=== PATIENT | female | born 1970 | race Caucasian/White ===

== ENCOUNTER 2019-12-16 14:55 | Outpatient (CLI) | payer BC, SELFPAY ==
--- NOTE | 2019-12-16 15:02 | MR_ITS ---
WS: [id number] MRI RIGHT SHOULDER NONCONTRAST TECHNIQUE: Sagittal T2, coronal T1, T2 and proton density imaging. Axial gradient PDE imaging. CLINICAL INFORMATION: RT ADHESIVE CAPSULITIS;ROTATOR CUFF SYNDROME RT COMPARISON: None. FINDINGS: Moderate degenerative arthritis AC joint. Mild downsloping acromion. Small amount of subacromial subd eltoid fluid. Edema at the AC joint. Signal abnormality in the rotator interval with thickening of th e axillary recess can be seen with adhesive capsulitis in appropriate clinical setting. Partial intrasubstance tear involving the distal supraspinatus at the insertion. Tendinopathy in the supraspinatus. No tendon retraction. Infraspinatus is intact. Normal teres minor. T2 signal abnormali ty involving the subscapularis tendon consistent with tendinopathy and partial intrasubstance tear. Normal biceps tendon in the bicipital groove. Tendinopathy along the intra-articular portion of the b iceps tendon which appears intact. Normal biceps labral anchor. Glenoid labrum appears grossly intact . Small amount of fluid along the subcoracoid recess. MR/MR shoulder RT wo con* [id number] IMPRESSION: 1. Moderate degenerative arthritis at the AC joints with edema and a small ludy unt of subacromial/subdeltoid fluid. 2. Small intrasubstance tear involving the distal supraspinatus at the inserti on. No tendon retraction. 3. Partial intrasubstance tear with tendinopathy involving the distal subscapu yolie tendon. No retraction. 4. Tendinopathy involving the intra-articular portion of the biceps tendon. Bi ceps labral anchor appears intact. 5. T2 signal abnormality in the rotator interval with thickening of the axilla ry recess can be seen with adhesive capsulitis in appropriate clinical setting.
== END 2019-12-16 14:56 | disposition home or self-care (01) ==
LOC: RADSHAW 15:00
PROVIDERS: Family Provider Electrodiagnostic Medicine; PCP Electrodiagnostic Medicine; Visit Provider Electrodiagnostic Medicine
DX: M75.01 Adhesive capsulitis of right shoulder (principal); M19.011 Primary osteoarthritis, right shoulder; M75.101 Unspecified rotator cuff tear or rupture of right shoulder, not specified as traumatic
CPT/HCPCS: 73221

== ENCOUNTER 2022-12-12 15:58 | Outpatient (CLI) | payer BC, SELFPAY ==
--- NOTE | 2022-12-12 16:19 | XR_ITS ---
WS: [id number] Left hand, 3 views, 12/12/2022 Clinical Data: left thumb pain Comparison: None. Findings: No fractures or dislocations are seen. The soft tissues are unremarkable. There is mild osteoarthriti c change of the second through fifth DIP joints. No periarticular demineralization is seen. 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
== END 2022-12-12 15:59 | disposition home or self-care (01) ==
PROVIDERS: PCP Family Medicine; Visit Provider Family Medicine
DX: Z00.00 Encounter for general adult medical examination without abnormal findings (principal); Z76.89 Persons encountering health services in other specified circumstances; M19.042 Primary osteoarthritis, left hand
CPT/HCPCS: 73130; 80053; 80061; 83036; 85025

== ENCOUNTER 2022-12-22 15:50 | Outpatient (CLI) | payer BC, SELFPAY ==
--- NOTE | 2022-12-22 15:53 | MM_ITS ---
WS: [id number] BILATERAL 3D TOMOSYNTHESIS DIGITAL SCREENING MAMMOGRAPHY WITH CAD CLINICAL INFORMATION: SCREEN HISTORY: Screening mammogram. No current complaints. COMPARISON: April 19, 2013 TECHNIQUE: Bilateral CC and MLO views. FINDINGS: Scattered fibroglandular densities bilaterally. No suspicious focal mass, asymmetry, calcifications, or architectural distortion. No evidence of malignancy. MM/[place] [id number] IMPRESSION: BI-RADS: 1-Negative FOLLOW UP: 1 Year Follow-up Recommend return to annual screening mammography.
== END 2022-12-22 15:51 | disposition home or self-care (01) ==
LOC: RAD 15:50
PROVIDERS: PCP Family Medicine; Visit Provider Family Medicine
DX: Z12.31 Encounter for screening mammogram for malignant neoplasm of breast (principal)
CPT/HCPCS: 77063; 77067

== ENCOUNTER → 2023-10-27 12:29 | Outpatient (BNVA) | payer BC, SELFPAY | PROVIDERS: PCP Family Medicine; Visit Provider Family Medicine | DX: R20.0 Anesthesia of skin (principal); R20.2 Paresthesia of skin | CPT/HCPCS: 80053; 82607; 82746; 84443; 85025 ==

== ENCOUNTER → 2024-03-12 11:43 | Outpatient (BNVA) | payer BC, SELFPAY | PROVIDERS: PCP Family Medicine; Visit Provider Student in an Organized Health Care Education/Training Program | DX: G56.01 Carpal tunnel syndrome, right upper limb; M18.12 Unilateral primary osteoarthritis of first carpometacarpal joint, left hand | CPT/HCPCS: 73110 ==

== ENCOUNTER 2024-04-24 06:38 | Day surgery (SDC) | payer BC, SELFPAY ==
[2024-04-24] VITALS (8 sets, daily range): BP systolic 114–163; BP diastolic 76–96; PULSE 73–87; RESP 14–20; TEMP 36.3–37.2; O2SAT 93–97; BMI 37.3
[2024-04-24] MEDS: acetaminophen 1,000 MG/100 ML PIGGYBACK 400 MG IV (06:40)
[2024-04-24] MEDS: sodium chloride 0.9% 1,000 ML 30 ML IV (07:04)
[2024-04-24] MEDS: scopolamine 1.5 Patch 1 PATCH TRANSDERMA (07:05)
--- NOTE | 2024-04-24 07:09 | P.ANESASSM_ITS ---
Pre-Anesthetic Assessment Height/Weight: Height 1.5 m Weight 83.915 kg O2 Del Method Room Air 04/24/24 07:02 Operation Date: 04/24/24 08:35 Proposed Procedures p Carpal Tunnel Release(Right) - Munir Thomas DO Familial anesthetic complications: None Was Beta Pablo taken within 24 hours: N/A Was Clonidine taken within 24 hours: N/A Last intake: Intake Last Liquid Date 04/23/24 Last Liquid Time 23:30 Last Solid Date 04/23/24 Last Solid Time 22:00 Social No alcohol and No tobacco Exam alert, oriented x 3, clear to auscultation bilaterally and regular rate & rhythm Airway Mallampati: Class II Dentition: full Pulmonary Asthma GI Gastroesophageal Reflux Disease Anesthetic Plan ASA status: 2 Anesthesia: MAC Risk of > 500 ml blood loss (7ml/kg in children): No Medications/Allergies Home Medications Medication Instructions Recorded Confirmed Last Taken Type omeprazole 40 mg capsule,delayed 40 mg PO DAILY 12/12/22 04/23/24 04/23/24 History release diclofenac sodium 1 % topical gel 2 g topical QID PRN arthritis #100 12/13/22 04/23/24 04/23/24 Rx (Voltaren Arthritis Pain) grams Allergies Allergy/AdvReac Type Severity Reaction Status Date / Time naproxen [From Naprosyn] Allergy anaphylaxis Verified 03/12/24 11:48 Current Medications Generic Name Dose Route Start Last Admin Trade Name Freq PRN Reason Stop Dose Admin Sodium Chloride 1,000 mls @ 30 mls/hr 04/24/24 06:45 04/24/24 07:04 Sodium Chloride 0.9% IV 04/25/24 06:44 30 mls/hr .Q24H DARLENE Administration PFSH Anesthesia Medical History GERD (gastroesophageal reflux disease) Herpes labialis Asthma Surgical History History of section History of tonsillectomy and adenoidectomy Family History Mother Diabetes Cancer colon - age 64 CAD (coronary artery disease) Grandmother , 56 Cancer Father Cancer Social History Smoking and tobacco/nicotine status: never used tobacco/nicotine Alcohol intake: current Alcohol intake frequency: 0-2 Drinks per Day Substance/Drug Use: never Lives independently: Yes Household members: children Marital status: Number of children: 1 Current occupational status: employed 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
--- NOTE | 2024-04-24 08:22 | P.HP_ITS ---
Same Day Surgery H&P Indication for Procedure/HPI DATE OF PROCEDURE: April 24, 2024 CHIEF COMPLAINT/INDICATIONFOR SURGICAL PROCEDURE: Right carpal tunnel syndrome PREOP DIAGNOSIS: Right carpal tunnel syndrome PLANNED PROCEDURE: Operation Date: 04/24/24 08:35 Proposed Procedures p Carpal Tunnel Release(Right) - Munir Thomas, Medications/Allergies* Home Medications Medication Instructions Recorded Confirmed Type omeprazole 40 mg capsule,delayed 40 mg PO DAILY 12/12/22 04/23/24 History release Allergies/Adverse Reactions Allergy/AdvReac Type Severity Reaction Status Date / Time naproxen [From Naprosyn] Allergy anaphylaxis Verified 03/12/24 11:48 Current Medications: Generic Name Dose Route Start Last Admin Trade Name Freq PRN Reason Stop Dose Admin Sodium Chloride 1,000 mls @ 30 mls/hr 04/24/24 06:45 04/24/24 07:04 Sodium Chloride 0.9% IV 04/25/24 06:44 30 mls/hr .Q24H DARLENE Administration Pertinent History/Comorbid Conditions* Medical History (Updated 12/29/23 @ 12:10 by Celine Regalado MD) GERD (gastroesophageal reflux disease) Herpes labialis Asthma Surgical History (Updated 12/12/22 @ 15:09 by Samira Borjas MD) History of section History of tonsillectomy and adenoidectomy Family History (Updated 12/12/22 @ 15:26 by Samira Borjas MD) Grandmother, 56 Diabetes Mother CAD (coronary artery disease) Mother Cancer Mother colon - age 64 Grandmother Father Social History Smoking and tobacco/nicotine status: never used tobacco/nicotine Alcohol intake: current Alcohol intake frequency: 0-2 Drinks per Day Substance/Drug Use: never Lives independently: Yes Household members: children Marital status: Number of children: 1 Current occupational status: employed 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 Negative Spurlings Negative tinels @ elbows Right and left. Normal ROM neg Guyons compression test Wrist: Positive median compression test Positive Tinel's on the right Positive Phalen's No thenar atrophy mild weakness bilaterally. No Intrinsic atrophy noted bilaterally. Tenderness to palpation over the left thumb CMC joint with positive CMC grind. Recommendations Surgery/Procedure today Other Plans: Plan to proceed OR today for right carpal tunnel release, patient understands and Zetts procedure risk benefits complication alternatives of surgery and maria teresau clayton shared decision make elects proceed with surgical intervention all questions answered. Coding Level of Care Code Acute Code for Chg Fwd
[2024-04-24] MEDS: ceFAZolin 2,000 MG in sodium chloride 0.9% (plus) 50 ML 100 MG IV (08:27)
[2024-04-24] MEDS: ROPivacaine 0.5% SDV 30 mL 25 MG INJECTION (08:47)
[2024-04-24] MEDS: lidocaine-epi 1% 20 mL INJ 5 ML INJECTION (08:47)
--- NOTE | 2024-04-24 09:07 | W.PM.BPON ---
Date of Procedure: [April 24, 2024] Surgeon: [Dr. Thomas DO] Print Developer Automatic(s): [Dipak Thomas PA-C] Procedure(s) performed: [Right carpal tunnel release] Findings of the procedure(s): [Right carpal tunnel syndrome] Estimated blood loss: [2 mL] Specimen(s) removed: [N/A] Post-operative diagnosis: [Right carpal tunnel syndrome]
--- NOTE | 2024-04-24 09:10 | PM.OP ---
Operative Report Date of procedure: April 24, 2024 Surgeon: Munir Thomas DO Patient Support Associate: Dipak Thomas PA-C: PA was necessary for assistance in this case with hand positioning to execute the procedure, retraction and protection of neurovascular structures as well as to assist with wound closure and dressing application. Procedure: Preoperative diagnosis: Right carpal tunnel syndrome post-op diagnosis: Same Procedure done: 1.?Right carpal tunnel?release Surgeon: Munir Thomas DO Anesthesia: MAC (Local) Estimated blood loss: 2 mL Tourniquet time 7 minutes IV fluids: See anesthesia?record Complications: None Findings: See operative?report narrative Condition: stable Disposition: same day Brief History: Patient is a pleasant 53 year-old female with?right carpal tunnel syndrome.? Patient has been worked up in the outpatient setting findings and physical examination consistent with this.? Patient nerve conduction studies consistent with carpal tunnel syndrome.? We detailed out patient's?risk benefits complication alternatives with surgical and nonsurgical treatment options. Through shared decision making, patient agrees to proceed with surgical intervention of the right carpal tunnel?release .? Patient understands and agrees with current plan.? All questions answered.? Patient elects to proceed with surgical intervention with carpal tunnel?release. Procedure: Patient seen and evaluated in the preoperative holding area.? Consent was?reviewed and signed with patient.? Correct extremity was marked.? Patient was seen evaluated by the anesthesia department once cleared for surgery was brought back to the operative suite.? Patient was kept on [facility] in supine position all bony prominences were well-padded patient properly secured to the bed.??Right upper extremity was then placed onto an armboard.? A nonsterile tourniquet was applied to the?RIght upper arm.? Patient underwent anesthesia per the anesthesia department.? Patient's?Right upper extremity was then prepped and draped in standard orthopedic fashion.? Final timeout performed.? Patient?received appropriate preoperative antibiotics. Under sterile aseptic technique patient?received local anesthesia over the preplanned carpal tunnel incision site. Esmarch was used to exsanguinate the?Right upper extremity and tourniquet was insufflated to 250 mmHg. A standard mini open?Right carpal tunnel incision was made.? Starting distally at Handley's cardinal line in line with the fourth?ray extending proximally distal to the wrist crease centered over the carpal tunnel.? Sharp scalpel incision was made through skin and subcutaneous tissue.? Self-retaining?retractor was placed and the palmar fascia was identified.? This was then split longitudinally and direct visualization of the transverse carpal ligament was then made.? I then utilizing scalpel feathered through the transverse carpal ligament until I entered the floor of the transverse carpal tunnel ligament into the carpal tunnel.? Next I switched to dissection scissors and completed my?release of the transverse carpal ligament distally with care to protect the?recurrent motor branch.? I completely?released into the palmar fat and until no entrapment was noted distally.? Care was made to protect the superficial palmar arch during my distal dissection.?? Next I utilized a nasal speculum placed on top of the transverse carpal ligament and utilize this to?retract the subcutaneous fat and tissue and under direct loupe magnification was able to identify the transverse carpal ligament.? Next I then placed a Cedar underneath the transverse carpal tunnel ligament to protect the contents of the carpal tunnel and subsequently utilizing dissection scissors under loupe magnification completely?released the transverse carpal ligament proximally into the median antebrachial fascia.? Care was made to protect the palmar cutaneous branch by keeping my scissors curved ulnarly.? Once completely?released, I then placed my Cedar and had appropriate decompression of the carpal tunnel proximally as well as distally.? I then inspected the contents of the carpal tunnel which showed an hourglass shape of the median nerve showing its compression.? No masses were noted.? Tendons appeared healthy.? Wound was then thoroughly irrigated.? Tourniquet deflated.? Hemostasis satisfactory with bipolar electrocautery.? I then closed the incision with interrupted nylon stitches.? Xeroform 4 x 4's and a bulky soft dressing was applied.? Patient was then awakened from anesthesia and taken to PACU in stable condition.? Patient tolerated procedure without complications. Disposition: Patient taken to PACU in stable condition?recovering well.? Dressing clean dry and intact.? Patient will?receive appropriate discharge instructions as well as pain medication postoperatively.? Patient to follow-up with me in the office in 2 weeks.? They understand they may be weightbearing as tolerated to the?right hand.? Patient should keep incision clean dry and intact.? Patient understands if any questions or concerns may contact the office.
--- NOTE | 2024-04-24 09:20 | P.PCN_ITS ---
PACU note Narrative: Patient is a 53-year-old female just underwent a right carpal tunnel release. Patient transferred to PACU in stable condition. Pain is well controlled. Dressing on hand is dry and in place. Patient's fingers are warm and well- perfused. Patient can wiggle fingers. normal cap refill under 2 seconds. Patient has normal elbow range of motion. Unable to assess sensation due to residual localized anesthetic. Exam: awake Disposition: discharged
--- NOTE | 2024-04-24 10:10 | ANE.PACU2 ---
Inpatient post-anesthesia follow up: Airway intact: Yes Vital signs: Temperature 97.6 F Pulse Rate 77 Respiratory Rate 18 Blood Pressure 134/91 Pulse Oximetry 97 Oxygen Delivery Me thod Room Air Oxygen Flow Rate 8 Fraction of Inspir ed Oxygen Hydration adequate: Yes Nausea and vomiting: No Pain level: 1 Mental status: Baseline
== END 2024-04-24 10:10 | disposition home or self-care (01) ==
PROVIDERS: PCP Family Medicine; Visit Provider Student in an Organized Health Care Education/Training Program
PROC: (CPT 64721; principal; 2024-04-24 08:25)
DX: G56.01 Carpal tunnel syndrome, right upper limb (principal); K21.9 Gastro-esophageal reflux disease without esophagitis
CPT/HCPCS: 64721; J0131; J0690; J2250; J2704; J2795; J3010; J7030

== ENCOUNTER 2024-07-24 08:23 | Day surgery (SDC) | payer BC, SELFPAY ==
[2024-07-24] VITALS (9 sets, daily range): BP systolic 122–146; BP diastolic 72–101; PULSE 69–83; RESP 14–18; TEMP 36.1–36.7; O2SAT 96–99; BMI 38.0
--- NOTE | 2024-07-24 08:41 | P.HP_ITS ---
Same Day Surgery H&P Indication for Procedure/HPI DATE OF PROCEDURE: July 24, 2024 CHIEF COMPLAINT/INDICATIONFOR SURGICAL PROCEDURE: Left carpal tunnel syndrome PREOP DIAGNOSIS: Left carpal tunnel syndrome PLANNED PROCEDURE: Operation Date: 07/24/24 10:05 Proposed Procedures p Carpal Tunnel Release(Left) - Munir Thomas DO Medications/Allergies* Home Medications Medication Instructions Recorded Confirmed Type black cohosh 40 mg tablet 40 mg PO ONCE 07/23/24 07/23/24 History Allergies/Adverse Reactions Allergy/AdvReac Type Severity Reaction Status Date / Time naproxen [From Naprosyn] Allergy anaphylaxis Verified 05/16/24 07:10 Current Medications: Generic Name Dose Route Start Last Admin Trade Name Freq PRN Reason Stop Dose Admin Ketorolac Tromethamine 30 mg 07/24/24 08:31 07/24/24 08:39 Ketorolac 30 Mg/Ml Inj IVP 07/24/24 08:32 Not Given ONCE ONE Pertinent History/Comorbid Conditions* Medical History (Updated 05/16/24 @ 07:35 by Munir Thomas DO) GERD (gastroesophageal reflux disease) Herpes labialis Asthma Surgical History (Updated 05/15/24 @ 10:36 by STAN Harvey) History of section History of tonsillectomy and adenoidectomy Family History (Updated 12/12/22 @ 15:26 by Samira Borjas MD) Grandmother, 56 Diabetes Mother CAD (coronary artery disease) Mother Cancer Mother colon - age 64 Grandmother Father Social History Smoking and tobacco/nicotine status: never used tobacco/nicotine Alcohol intake: current Alcohol intake frequency: 0-2 Drinks per Day Substance/Drug Use: never Lives independently: Yes Household members: children Marital status: Number of children: 1 Current occupational status: employed 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 Fingers are warm and well-perfused Normal range of motion in wrist and fingers. Negative Tinel's at left elbow and negative elbow flexion test. Recommendations Surgery/Procedure today Other Plans: Plan to proceed to the OR today for left carpal tunnel release. Patient understands he is answered procedure the risk benefits complication alternatives surgery and through shared decision-making was proceed with surgical invention. All questions have been answered at this time. Coding Level of Care Code Acute Code for Chg Chely
[2024-07-24] MEDS: acetaminophen 1,000 MG/100 ML PIGGYBACK 400 MG IV (08:49)
[2024-07-24] MEDS: scopolamine 1.5 Patch 1 PATCH TRANSDERMA (08:50)
[2024-07-24] MEDS: sodium chloride 0.9% 1,000 ML 30 ML IV (08:51)
--- NOTE | 2024-07-24 08:58 | ANES.PREANE2 ---
Pre-Anesthetic Assessment Height/Weight: Height 4 ft 10 in Weight 182 lb Temp Pulse Resp BP Pulse Ox O2 Del Method 98.1 F 77 18 146/101 98 Room Air 07/24/24 08:34 07/24/24 08:34 07/24/24 08:34 07/24/24 08:34 07/24/24 08:34 07/24/24 08:34 Preop Diagnosis: Left carpal tunnel syndrome Operation Date: 07/24/24 10:05 Proposed Procedures p Carpal Tunnel Release(Left) - Munir Thomas DO Last intake: Intake Last Liquid Date 07/23/24 Last Liquid Time 23:30 Last Solid Date 07/23/24 Last Solid Time 20:00 Social No alcohol and No tobacco Exam alert, oriented x 3, clear to auscultation bilaterally and regular rate & rhythm Airway Submandibular: within normal limits Cervical ROM: within normal limits Mallampati: Class III Dentition: full Anesthetic Plan Other: No prior issues with anesthesia Patient was recently here for other carpal tunnel and did well under MAC anesthesia NPO since midnight Patient denies cardiac issues Mild asthma, controlled with inhalers METs greater than 4 Plan for MAC anesthesia Medications/Allergies Home Medications Medication Instructions Recorded Confirmed Last Taken Type diclofenac sodium 1 % topical gel 2 g topical QID PRN arthritis #100 12/13/22 07/23/24 07/22/24 Rx (Voltaren Arthritis Pain) grams pantoprazole 40 mg tablet,delayed 40 mg PO BID #60 tabs 07/03/24 07/23/24 07/23/24 Rx release black cohosh 40 mg tablet 40 mg PO ONCE 07/23/24 07/23/24 07/22/24 History tramadol 50 mg tablet 50 mg PO Q6H PRN pain 5 days #20 07/24/24 Unknown Rx tabs Allergies Allergy/AdvReac Type Severity Reaction Status Date / Time naproxen [From Naprosyn] Allergy anaphylaxis Verified 05/16/24 07:10 Current Medications Generic Name Dose Route Start Last Admin Trade Name Freq PRN Reason Stop Dose Admin Sodium Chloride 1,000 mls @ 30 mls/hr 07/24/24 08:45 07/24/24 08:51 Sodium Chloride 0.9% IV 07/25/24 08:44 30 mls/hr .Q24H DARLENE Administration PFSH Anesthesia Medical History GERD (gastroesophageal reflux disease) Herpes labialis Asthma Surgical History History of section History of tonsillectomy and adenoidectomy Family History Mother Diabetes Cancer colon - age 64 CAD (coronary artery disease) Grandmother , 56 Cancer Father Cancer Social History Smoking and tobacco/nicotine status: never used tobacco/nicotine Alcohol intake: current Alcohol intake frequency: 0-2 Drinks per Day Substance/Drug Use: never Lives independently: Yes Household members: children Marital status: Number of children: 1 Current occupational status: employed 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
[2024-07-24] MEDS: ceFAZolin 2,000 MG in sodium chloride 0.9% (plus) 50 ML 100 MG IV (09:22)
[2024-07-24] MEDS: ROPivacaine 0.5% SDV 30 mL 150 MG INJECTION (09:43)
[2024-07-24] MEDS: lidocaine-epi 1% 20 mL INJ INJECTION (09:43)
--- NOTE | 2024-07-24 09:49 | P.OP_ITS ---
Operative Report Date of procedure: July 24, 2024 Surgeon: Munir Thomas DO Procedure: Preop Diagnosis: Left Carpal Tunnel Syndrome Post-op diagnosis: Same Procedure done: 1. Left carpal tunnel release Surgeon: Munir Thomas DO Anesthesia: MAC (Local) Estimated blood loss: 1 mL Tourniquet time 5 minutes IV fluids: See anesthesia record Complications: None Findings: See operative report narrative Condition: stable Disposition: same day Brief History: Patient is a pleasant 53 year-old female with left carpal tunnel syndrome. Patient has been worked up in the outpatient setting findings and physical examination consistent with this. Patient nerve conduction studies consistent with carpal tunnel syndrome. We detailed out patient's risk benefits complication alternatives with surgical and nonsurgical treatment options. Through shared decision making, patient agrees to proceed with surgical intervention of the left carpal tunnel release . Patient understands and agrees with current plan. All questions answered. Patient elects to proceed with surgical intervention today. Procedure: Patient seen and evaluated in the preoperative holding area. Consent was reviewed and signed with patient. Correct extremity was marked. Patient was seen evaluated by the anesthesia department once cleared for surgery was brought back to the operative suite. Patient was kept on [facility] in supine position all bony prominences were well-padded patient properly secured to the bed. Left upper extremity was then placed onto an armboard. A nonsterile tourniquet was applied to the left upper arm. Patient underwent anesthesia per the anesthesia department. Patient's left upper extremity was then prepped and draped in standard orthopedic fashion. Final timeout performed. Patient received appropriate preoperative antibiotics. Under sterile aseptic technique patient received local anesthesia over the preplanned carpal tunnel incision site. Esmarch was used to exsanguinate the left upper extremity and tourniquet was insufflated to 250 mmHg. A standard mini open left carpal tunnel incision was made. Starting distally at Handley's cardinal line in line with the fourth ray extending proximally distal t o the wrist crease centered over the carpal tunnel. Sharp scalpel incision was made through skin and subcutaneous tissue. Self-retaining retractor was placed and the palmar fascia was identified. This was then split longitudinally and direct visualization of the transverse carpal ligament was then made. I then utilizing scalpel feathered through the transverse carpal ligament until I entered the floor of the transverse carpal tunnel ligament into the carpal tunnel. Next I switched to dissection scissors and completed my release of the transverse carpal ligament distally with care to protect the recurrent motor branch. I completely released into the palmar fat and until no entrapment was noted distally. Care was made to protect the superficial palmar arch during my distal dissection. Next, nasal speculum placed proximally for retraction of soft tissue on top of the Transverse carpal ligament. Next the contents of the carpal tunnel where protected and and subsequently utilizing dissection scissors under loupe magnification completely released the transverse carpal ligament proximally into the antebrachial fascia. Care was made to protect the palmar cutaneous branch by keeping my scissors curved ulnarly. Once completely released, I then placed my Herman and had appropriate decompression of the carpal tunnel proximally as well as distally. I then inspected the contents of the carpal tunnel which showed an hourglass shape of the median nerve showing its compression. No masses were noted. Tendons appeared healthy. Wound was then thoroughly irrigated. Tourniquet deflated. Hemostasis satisfactory with bipolar electrocautery. I then closed the incision with interrupted nylon stitches. Xeroform 4 x 4's and a bulky soft dressing was applied to the left upper extr emity. Patient was then awakened from anesthesia and taken to PACU in stable condition. Patient tolerated procedure without complications. Disposition: Patient taken to PACU in stable condition recovering well. Dressing clean dry and intact. Patient will receive appropriate discharge instructions as well as pain medication postoperatively. Patient to follow-up with Ortho in the office in 2 weeks. They understand they may be weightbearing as tolerated to the left hand. Patient should keep incision clean dry and intact. Patient understands if any questions or concerns may contact the o ffice.
--- NOTE | 2024-07-24 09:49 | P.BOP_ITS ---
Date of Procedure: 07/24/2024 Surgeon: Munir Thomas DO Merchandise Flow Manager(s): None Procedure(s) performed: Left carpal tunnel release Findings of the procedure(s): Patient found to have left carpal tunnel syndrome underwent procedure as planned without issues or complications Estimated blood loss: 1 mL Specimen(s) removed: None Post-operative diagnosis: Left carpal tunnel syndrome
--- NOTE | 2024-07-24 11:05 | ANE.PACU2 ---
Inpatient post-anesthesia follow up: Airway intact: Yes Vital signs: Temperature 97 F Pulse Rate 75 Respiratory Rate 18 Blood Pressure 142/80 Pulse Oximetry 99 Oxygen Delivery Me thod Room Air Oxygen Flow Rate 6 Fraction of Inspir ed Oxygen Hydration adequate: Yes Nausea and vomiting: No Pain level: 1 Mental status: Baseline
== END 2024-07-24 11:05 | disposition home or self-care (01) ==
PROVIDERS: PCP Family Medicine; Visit Provider Student in an Organized Health Care Education/Training Program
PROC: (CPT 64721; principal; 2024-07-24 10:05)
DX: G56.02 Carpal tunnel syndrome, left upper limb (principal); K21.9 Gastro-esophageal reflux disease without esophagitis; J45.909 Unspecified asthma, uncomplicated
CPT/HCPCS: 64721; J0131; J0690; J2250; J2704; J2795; J3010; J7030

== ENCOUNTER 2024-08-09 10:21 | Outpatient (CLI) | payer BC, SELFPAY ==
--- NOTE | 2024-08-09 11:30 | MM_ITS ---
WS: [id number] BILATERAL SCREENING DIGITAL TOMOSYNTHESIS MAMMOGRAM WITH CAD HISTORY: breast cancer screening COMPARISON: 12/22/2022, 05/13/2013 Bilateral CC and MLO views with tomosynthesis and synthetic mammography submitted. Computer aided det ection analyzed. Breast composition: There are scattered areas of fibroglandular density. No suspicious masses, microc alcifications or architectural distortion. There are a few scattered nodules and calcifications which are stable. MM/MM scr tomosynthesis [id number] IMPRESSION: BI-RADS: 2 - Benign. FOLLOW UP: 1 Year Follow-up
== END 2024-08-09 10:22 | disposition home or self-care (01) ==
LOC: RAD 10:21
PROVIDERS: PCP Family Medicine; Visit Provider Family Medicine
DX: Z12.31 Encounter for screening mammogram for malignant neoplasm of breast (principal)
CPT/HCPCS: 77063; 77067

== ENCOUNTER → 2024-11-26 10:59 | Outpatient (BNVA) | payer BC, SELFPAY | PROVIDERS: PCP Family Medicine; Visit Provider Student in an Organized Health Care Education/Training Program | DX: M18.12 Unilateral primary osteoarthritis of first carpometacarpal joint, left hand (principal); M79.645 Pain in left finger(s) | CPT/HCPCS: 73130 ==

== ENCOUNTER 2024-12-18 11:39 | Day surgery (SDC) | payer BC, SELFPAY ==
[2024-12-18] VITALS (7 sets, daily range): BP systolic 103–120; BP diastolic 64–81; PULSE 74–80; RESP 10–18; TEMP 36.5–36.9; O2SAT 91–98; BMI 39.4
[2024-12-18] MEDS: sodium chloride 0.9% 1,000 ML 30 ML IV (12:04)
[2024-12-18] MEDS: acetaminophen 1,000 MG/100 ML PIGGYBACK 400 MG IV (12:05)
[2024-12-18] MEDS: scopolamine 1 mg PATCH 1 PATCH TRANSDERMA (12:05)
[2024-12-18 12:27] LABS: Basophils # 0.1 10^3/uL (0.0-0.1); Basophils % 0.7 %; Eosinophils # 0.2 10^3/uL (0.0-0.8); Hematocrit 38.3 % (36-47); Lymphocytes # 2.1 10^3/uL (0.8-4.8); Lymphocytes % 29.8 %; Mean Corpuscular HGB Conc 31.6 g/dL (30-55); Mean Corpuscular Hemoglobin 27.1 pg (27-33); Mean Corpuscular Volume 85.9 fl (85-98); Mean Platelet Volume 10.5 fL (7.4-10.4); Monocytes # 0.4 10^3/uL (0.2-0.9); Monocytes % 6.1 %; Neutrophils # 4.14 10^3/uL (1.8-7.7); Nucleated Red Blood Cells % 0 %; Platelet Count 221 10^3/cmm (157-399); Red Blood Count 4.46 10^6/uL (3.85-5.65); Red Cell Distribution Width 14.1 % (12.1-15.1); White Blood Count 6.91 10^3/uL (3.29-11.43)
--- NOTE | 2024-12-18 12:28 | ANES.PREANE2 ---
Pre-Anesthetic Assessment Height/Weight: Height 4 ft 10 in Weight 189 lb Temp Pulse Resp BP Pulse Ox O2 Del Method 98.5 F 79 16 120/81 98 Room Air 12/18/24 11:52 12/18/24 11:52 12/18/24 11:52 12/18/24 11:52 12/18/24 11:52 12/18/24 11:55 Preop Diagnosis: CMC arthritis of the thumb Operation Date: 12/18/24 13:10 Proposed Procedures p Left thumb basal joint arthroplasty(Left) - Munir Thomas, DO Was Beta Pablo taken within 24 hours: N/A Was Clonidine taken within 24 hours: N/A Last intake: Intake Last Liquid Date 12/17/24 Last Liquid Time 23:00 Last Solid Date 12/17/24 Last Solid Time 22:00 Social No alcohol and No tobacco Exam alert, oriented x 3, clear to auscultation bilaterally and regular rate & rhythm Airway Submandibular: within normal limits Cervical ROM: within normal limits Mallampati: Class I Dentition: full Anesthetic Plan ASA status: 3 Anesthesia: General and Regional (specify below) Other: No prior issues with anesthesia NPO since yesterday Asthma, controlled with inhalers History of GERD on Protonix Labs today reviewed and acceptable for procedure Plan for general anesthesia with possible peripheral nerve block Medications/Allergies Home Medications Medication Instructions Recorded Confirmed Last Taken Type diclofenac sodium 1 % topical gel 2 g topical QID PRN arthritis #100 12/13/22 12/17/24 07/22/24 Rx (Voltaren Arthritis Pain) grams black cohosh 40 mg tablet 40 mg PO DAILY 07/23/24 12/17/24 1 Day Ago History ~12/16/24 albuterol sulfate 90 mcg/actuation 2 puff inhalation Q4H PRN 10/02/24 12/17/24 Unknown Rx aerosol inhaler (Ventolin HFA) shortness of breath or wheezing #8.5 grams fluticasone propionate 50 1 spray intranasal DAILY 10/04/24 12/17/24 Unknown History mcg/actuation nasal spray,suspension (Flonase Allergy Relief) pantoprazole 40 mg tablet,delayed 40 mg PO BID #90 tabs 11/18/24 12/17/24 1 Day Ago Rx release ~12/16/24 Allergies Allergy/AdvReac Type Severity Reaction Status Date / Time naproxen [From Naprosyn] Allergy anaphylaxis Verified 12/18/24 11:51 tramadol Allergy ADR-Nausea Verified 12/18/24 11:51 Current Medications Generic Name Dose Route Start Last Admin Trade Name Shamar PRN Reason Stop Dose Admin Sodium Chloride 1,000 mls @ 30 mls/hr 12/18/24 11:45 12/18/24 12:04 Sodium Chloride 0.9% IV 12/19/24 11:44 30 mls/hr .Q24H DARLENE Administration PFSH Anesthesia Medical History GERD (gastroesophageal reflux disease) Herpes labialis Asthma Surgical History Status post carpal tunnel release History of section History of tonsillectomy and adenoidectomy Family History Mother Diabetes Cancer colon - age 64 CAD (coronary artery disease) Grandmother , 56 Cancer Father Cancer Social History Smoking and tobacco/nicotine status: never used tobacco/nicotine Alcohol intake: current Alcohol intake frequency: 0-2 Drinks per Day Substance/Drug Use: never Lives independently: Yes Household members: children Marital status: Number of children: 1 Current occupational status: employed 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
--- NOTE | 2024-12-18 12:37 | W.PM.OPSUD ---
Surgery/Procedure H&P Update DATE OF PROCEDURE: December 18, 2024 DATE H&P PERFORMED: 11/26/24 H&P UPDATE INFORMATION: I have reviewed H&P completed within last 30 days, I have examined patient prior to procedure and No changes to prior documentation PREOP DIAGNOSIS: CMC arthritis of the thumb left PRIMARY INDICATION FOR PROCEDURE: Left thumb basal joint arthroplasty PLANNED PROCEDURE: Operation Date: 12/18/24 13:10 Proposed Procedures p Left thumb basal joint arthroplasty(Left) - Munir Thomas DO
[2024-12-18 12:44] LABS: Alanine Aminotransferase 23 U/L (0-33); Albumin Level 4.3 g/dL (3.5-5.2); Alkaline Phosphatase 71 U/L (35-105); Aspartate Amino Transferase 21 U/L (0-32); Blood Urea Nitrogen 16 mg/dL (6-20); Calcium 9.4 mg/dL (8.5-10.5); Carbon Dioxide 26 mmol/L (22-29); Chloride 102 mmol/L (98-107); Creatinine Clr Calc Pharmacy 143.3778; Globulin 2.7 g/dL (1.3-4.6); Glomerular Filtration Rate 103.8 mL/min (90-130); Glucose 87 mg/dL (65-115); Osmolality Calculated 289 mOsm/kg (285-295); Sodium 139 mmol/L (136-145); Total Bilirubin 0.3 mg/dL (0.15-1.2)
--- NOTE | 2024-12-18 13:08 | ANES.PROC ---
Anesthesia Procedures Procedure/Date: 12/18/24 Nerve Block ^: Nerve Block 1: Main Anesthesia: other (fentanyl 100mcg and 2mg versed) Time Out Performed: Yes Nerve block location: supraclavicular Anesthesia monitors applied: pulse oximetry, EKG, BP cuff and oxygen Nerve block position: supine Anesthetic Used: ropivicaine 0.5% Amount of anesthesia used (mL): 30 Ultrasound used to: recognize landmarks Nerve Stimulator Used?: Yes Interscalene/Femoral BLK: other needle (pjunk 4inch) Injection: neg aspiration of heme Patient Tolerated Procedure: well Complications: none Additional Comments: decadrong 4mg added to block
[2024-12-18 13:14] LABS: Anion Gap 14.9 (5-19); Potassium 3.9 mmol/L (3.5-5.1)
[2024-12-18] MEDS: ceFAZolin 2,000 MG in sodium chloride 0.9% (plus) 50 ML 100 MG IV (13:23)
--- NOTE | 2024-12-18 14:51 | W.PM.BPON ---
Date of Procedure: 12/18/2024 Surgeon: Munir Thomas DO Shell Shop Supervisor(s): None Procedure(s) performed: Left thumb basal joint arthroplasty Left thumb APL tendon slip transfer Findings of the procedure(s): Patient found to have left thumb basal joint arthritis underwent procedure as planned without issues or complications. Placed in thumb spica splint taken PACU in stable condition Estimated blood loss: 5 mL Specimen(s) removed: Trapezium excised Post-operative diagnosis: Left thumb basal joint arthritis
--- NOTE | 2024-12-18 14:54 | P.OP_ITS ---
Operative Report Date of procedure: December 18, 2024 Surgeon: Munir Thomas DO Procedure: Preoperative diagnosis: Left thumb?basal?joint?arthritis Procedure done: Left thumb?basal?joint?arthroplasty? Left thumb APL tendon slip transfer Implants: Arthrex fiber lock suspension implant kit for?basal?joint?arthroplasty Surgeon: Munir Thomas DO Estimated blood loss: 5mL Tourniquet time: 46? min Complications: none Condition: stable Disposition: same day Brief History: Patient's been seen and worked up in the outpatient setting.? Findings consistent with a Left thumb?basal?joint?severe arthritis. This is failed con servative treatment she is underwent injections as well as bracing at this point her last injection only provided minimal relief and at this point time her only other treatment option surgical intervention of the Left thumb?basal?joint.? We talked about surgery in detail about the risk benefits complication alternatives to surgical nonsurgical treatment options.? At this point time her persistent pain is causing her significant issues.? She does understand with the?basal?joint?arthroplasty potential loss of range of motion as well as strength but ultimately this would provide her with significant pain relief.? Through shared decision making she elects proceed with surgical intervention of Left thumb?basal?joint?arthroplasty.? Once again she understands risk benefits complication alternatives to each treatment option understanding risk elects to proceed with surgery. Procedure: Patient seen evaluated in the preoperative holding area.? Consent was signed and reviewed with patient.? Correct extremity marked.? Once cleared by anesthesia patient was taken back to the operative suite.? Underwent anesthesia per the anesthesia department.? Patient was placed in supine position all bony prominences well-padded patient was properly secured to the bed.? Underwent anesthesia for the anesthesia department.? A armboard was placed to the Left upper extremity a nonsterile tourniquet applied to the Left upper arm.? Once appropriately anesthetized Left upper extremity was then prepped and draped in standard orthopedic fashion.? Final timeout performed.? Patient received appropriate preoperative antibiotics. Esmarch was used exsanguinate the Left upper extremity and tourniquet was insufflated to 250 mmHg. ?I then utilized a 15 blade in standard longitudinal fashion directly over the Left thumb?basal?joint?.? Sharp scalpel incision was made through skin only.? I then switched to Littler dissection scissors and dissected out the dorsal cutaneous branches which were protected throughout this case.? I then identified the APL and EPB tendons.? I then performed a first dorsal compartment release under direct visualization with loupe magnification.? At this point time I then mobilized the tendons with a blunt wheatie self retractor and went through this interval.? Next I was directly onto the CMC?joint?dorsal capsule.? I then subsequently utilized my dissection scissors to dissect out the dorsal branch radial artery which was then identified and protected by my offset assistant press operator throughout this case with a Kasdan retractor.? Once I identified the radial artery and dorsal branch I then subsequently performed my capsulotomy of the first CMC?joint?with Quileute blade.? I then introduced a [place] into the arthritic space at the first CMC?joint.? This was confirmed with mini C arm to be the appropriate bone prior to performing my trapeziectomy.? The trapezium was then shelled out and its entirety with a McClamary elevator, freer, and tolowa dee-ni' blade with care to protect and not injure any of my remaining carpal bone articular cartilage as well as not to injury the radial artery as it was protected throughout the case.? This was then removed and identified the FCR within the floor of my incision.? Trapeziectomy was complete and confirmed on mini C arm. At this point time I thoroughly irrigated and removed of all residual bony debris.? There was no significant arthritic changes of the STT?joint. I then subsequently plan to proceed with utilizing Arthrex fiber lock suspensioplasty kit which was then opened and then subsequently drilled into the second metacarpal base.? Once I confirm my appropriate placement with mini C arm all suture anchor.? Once this was confirmed appropriate placement I then drilled the impacted and deployed the bicortical suture anchor.? This had excellent tension and could lift the arm off of the table with its fixation.? I then subsequently identified the radial aspect of the first metacarpal and at its mid substance on the radial aspect I subsequently drilled tapped and holding the thumb in appropriate adduction with not over distraction keeping it in line with the base of the second and subsequently loaded suturetape under appropriate tension and thumb positioning keeping the thumb in adduction and appropriate length impacted this suture anchor which had excellent fixation and the excess suture was then removed.? This was then confirmed to have excellent axial stability and an appropriate suspensioplasty.? Thumb?joint?was stable with axial loading however there was concern for possible impingement if taken through excessive abduction in order to prevent this selected to proceed with APL tendon slip transfer and interposition. This was used to help add Stability and abduction positioning and was to prevent impingement and to help add with fixation& interposition within the voided space from the trapeziectomy.? I then identified a slip of the APL which was then harvested proximally and then weaved this through and around the FCR tendon and then pulled up thru the capsule then tied this onto the APL tendon itself which created a soft tissue interposition as well as added appropriate abduction to the thumb with appropriate thumb position.? This was then secured with 2 horizontal mattress stitches with 4-0 FiberWire.? I then took the excess of the APL tendon and then placed this within the voided space as a interposition.? I then subsequently had the tourniquet deflated.? Hemostasis was satisfactory.? I then took some Gelfoam to add for soft tissue and interposition within the voided space and hemostasis.? ?Wound bed was once again thoroughly irrigated.? I then closed the incision with deep 3-0 Vicryl and Monocryl and Dermabond for skin.? Final x-rays with mini C arm were then taken showing stable trapeziectomy with soft tissue and suture anchor interposition.? Thumb had excellent axial stability as well as appropriate positioning.? Patient was then dressed with 4 x 4's ABD Curlex and a thumb spica splint With an Thomas wrap.? Patient was awakened from anesthesia and taken to PACU in stable condition. Disposition: Patient taken to PACU in stable condition recovering well.? Patient will receive appropriate discharge instructions as well as pain medication postoperatively.? Patient will follow therapy protocol with OT hand therapy for?basal?joint?arthroplasty.? Patient and family understand agrees with current plan.? All questions answered.? We will see in ortho office in 2 weeks.
--- NOTE | 2024-12-18 15:05 | PM.PACU ---
PACU note Narrative: Patient is a 53-year-old female just underwent a left thumb basal joint arthroplasty. Patient transferred to PACU in stable condition. Pain is well controlled. Splint and dressing on hand is dry and in place. Patient's fingers are warm and well-perfused. Patient can wiggle fingers. normal cap refill under 2 seconds. Patient has normal elbow range of motion. Sensation to fingers intact. Exam: awake Disposition: discharged
[2024-12-18] MEDS: HYDROcodone-acetaminophen 5-325 mg Tablet 1 TAB PO (15:45)
--- NOTE | 2024-12-18 15:53 | ANE.PACU2 ---
Inpatient post-anesthesia follow up: Airway intact: Yes Vital signs: Temperature 97.8 F Pulse Rate 77 Respiratory Rate 17 Blood Pressure 106/70 Pulse Oximetry 94 Oxygen Delivery Me thod Room Air Oxygen Flow Rate Fraction of Inspir ed Oxygen Hydration adequate: Yes Nausea and vomiting: No Pain level: 1 Mental status: Baseline
== END 2024-12-18 15:53 | disposition home or self-care (01) ==
PROVIDERS: Student in an Organized Health Care Education/Training Program; PCP Family Medicine; Visit Provider Student in an Organized Health Care Education/Training Program
PROC: (CPT 25310; principal; 2024-12-18 13:00)
DX: M19.042 Primary osteoarthritis, left hand (principal); J45.909 Unspecified asthma, uncomplicated; K21.9 Gastro-esophageal reflux disease without esophagitis
CPT/HCPCS: 25310; 26535; 36415; 80053; 85025; C1713; J0131; J0690; J1100; J2405; J2704; J3010; J7030

== ENCOUNTER 2024-12-28 06:30 | Outpatient (CLI) | payer BC, SELFPAY | END 2024-12-28 06:31 | disposition home or self-care (01) | LOC: SOT 01-08 14:32 | PROVIDERS: PCP Family Medicine; Visit Provider Student in an Organized Health Care Education/Training Program | DX: Z46.89 Encounter for fitting and adjustment of other specified devices (principal); M18.12 Unilateral primary osteoarthritis of first carpometacarpal joint, left hand | CPT/HCPCS: 97760; L3807 ==

== ENCOUNTER → 2025-01-01 14:53 | Outpatient (BNVA) | payer BC, SELFPAY | PROVIDERS: PCP Family Medicine; Visit Provider Physician Assistant | DX: M18.12 Unilateral primary osteoarthritis of first carpometacarpal joint, left hand (principal); Z98.890 Other specified postprocedural states | CPT/HCPCS: 73130 ==

== ENCOUNTER → 2025-01-22 13:52 | Outpatient (BNVA) | payer BC, SELFPAY | PROVIDERS: PCP Family Medicine; Visit Provider Physician Assistant | DX: Z98.890 Other specified postprocedural states (principal) | CPT/HCPCS: 73130 ==

== ENCOUNTER → 2025-02-19 10:51 | Outpatient (BNVA) | payer BC, SELFPAY | PROVIDERS: PCP Family Medicine; Visit Provider Student in an Organized Health Care Education/Training Program | DX: Z98.890 Other specified postprocedural states (principal); Z96.698 Presence of other orthopedic joint implants | CPT/HCPCS: 73130 ==

== ENCOUNTER 2025-02-20 14:49 | Outpatient (RCR) | payer BC, SELFPAY | END 2025-02-24 23:59 | disposition home or self-care (01) | LOC: SOT 14:49 | PROVIDERS: Visit Provider Student in an Organized Health Care Education/Training Program | DX: M18.2 Bilateral post-traumatic osteoarthritis of first carpometacarpal joints (principal); Z96.692 Finger-joint replacement of left hand; Z47.1 Aftercare following joint replacement surgery | CPT/HCPCS: 97110; 97165; 97530 ==

== ENCOUNTER 2025-02-25 05:00 | Outpatient (RCR) | payer BC, SELFPAY | END 2025-03-26 23:59 | disposition home or self-care (01) | LOC: SOT 05:00 | PROVIDERS: Visit Provider Student in an Organized Health Care Education/Training Program | DX: M18.2 Bilateral post-traumatic osteoarthritis of first carpometacarpal joints (principal) | CPT/HCPCS: 97022; 97110; 97140 ==

== ENCOUNTER 2025-03-27 05:00 | Outpatient (RCR) | payer BC, SELFPAY | END 2025-04-26 23:59 | disposition home or self-care (01) | LOC: SOT 05:00 | PROVIDERS: Visit Provider Student in an Organized Health Care Education/Training Program | DX: M18.2 Bilateral post-traumatic osteoarthritis of first carpometacarpal joints (principal) | CPT/HCPCS: 97022; 97110 ==

== ENCOUNTER → 2025-04-30 08:53 | Outpatient (BNVA) | payer BC, SELFPAY | PROVIDERS: PCP Family Medicine; Visit Provider Student in an Organized Health Care Education/Training Program | DX: Z98.890 Other specified postprocedural states (principal); Z96.698 Presence of other orthopedic joint implants | CPT/HCPCS: 73130 ==

== ENCOUNTER 2025-10-15 12:34 | Outpatient (CLI) | payer BC, SELFPAY ==
--- NOTE | 2025-10-15 | MM_ITS ---
WS: [id number] BILATERAL 3D TOMOSYNTHESIS DIGITAL SCREENING MAMMOGRAPHY WITH CAD CLINICAL INFORMATION: ANNUAL SCREENING HISTORY: Screening mammogram. No current complaints. COMPARISON: 2023 TECHNIQUE: Bilateral CC and MLO views. FINDINGS: Scattered fibroglandular densities bilaterally. No suspicious focal mass, asymmetry, calcifications, or architectural distortion. No evidence of malignancy. MM/MM scr BI tomosynthesis [id number] IMPRESSION: DENSITY: There are scattered areas of fibroglandular density. BI-RADS: 1 - Negative. FOLLOW UP: 1 Year Follow-up Recommend return to annual screening mammography.
== END 2025-10-15 12:35 | disposition home or self-care (01) ==
LOC: RAD 12:35
PROVIDERS: PCP Family Medicine; Visit Provider Family Medicine
DX: Z12.31 Encounter for screening mammogram for malignant neoplasm of breast (principal); R92.323 Mammographic fibroglandular density, bilateral breasts
CPT/HCPCS: 77063; 77067

== ENCOUNTER 2025-10-27 15:28 | Outpatient (CLI) | payer BC, SELFPAY | END 2025-10-27 15:29 | disposition home or self-care (01) | LOC: SLEEP 15:31 | PROVIDERS: PCP Family Medicine; Referring Provider Electrodiagnostic Medicine; Visit Provider Internal Medicine Pulmonary Disease | DX: G47.33 Obstructive sleep apnea (adult) (pediatric) (principal) | CPT/HCPCS: G0399 ==